=== PATIENT | female | born 1950 | race Caucasian/White ===

== ENCOUNTER 2022-10-31 10:32 | Inpatient (IN) | payer MEDICARE, OTHER ==
[~2022-10-31] VITALS: Ht 152.4 cm; Wt 64.4 kg
--- NOTE | 2022-10-31 11:00 | NUR ---
RN NOTE- 72 Y/O FEMALE BIB AMBULANCE CREW FROM [facility] FOR 5150 GD / DTS. BEGIN ADMISSION PROCESS
--- NOTE | 2022-10-31 11:01 | NUR ---
MECHANICAL DESIGN ENGINEER NOTE- 72 Y/O PORTUGUESE SPEAKING FEMALE WAS BIB FAMILY TO [facility] FOR DETERIORATING SX, PARANOIA, AWOL ATTEMPTS FROM FAMILY HOME AND ESCALATING AGITATION. PT REFUSED RX ETC. POLICE WERE CALLED BY FAMILY. SHE WAS PLACED ON 5150 DTS / GD. 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 PT MEDS - RISPERDAL, LEXAPRO, PAXIL. SHE HAS NKA. COVID VACCS - MODERNA X 3. NO PNA, NO FLU. ON ASSESSMENT- NO SKIN ISSUES, AOX PERSON ONLY. PARANOID, GUARDED. PT ATTEMPTED TO GO FOR DOORS OF UNIT AND AWOL. REORIENTATION COMPLETED. DR AMANDA TO SEE PT. FAMILY NOTIFIED. CM SPOKE W SON. VS - BP- 136/72, HR- 67, RR- 18. T- 98.0. O2 SATS 98% RA. RECEIVE ORDERS. COMPLY. PROVIDE SAFE ENVIRONMENT. MONITOR / ASSIST
[2022-10-31] MEDS ORDERED: ASPI-1169 PO (11:54)
[2022-10-31] MEDS ORDERED: ESCI10TA PO (11:54)
[2022-10-31] MEDS ORDERED: FLUT16SP16 NS (11:54)
[2022-10-31] MEDS ORDERED: CHOL100043 PO (11:54)
[2022-10-31] MEDS ORDERED: TELM40TA2 PO (11:54)
[2022-10-31] MEDS ORDERED: ALPR0.255 PO ×2 (11:54)
[2022-10-31] MEDS: risperiDONE-M 0.5 MG TAB.RAPDIS PO SCH ×3 (12:00→17:00)
[2022-10-31] MEDS: DIVALPROEX SODIUM 250 MG TABLET.DR PO SCH ×3 (13:00→17:00)
[2022-10-31] MEDS ORDERED: MAGNESIUM HYDROXIDE 30 ML UDC PO PRN (15:00)
[2022-10-31] MEDS ORDERED: ACETAMINOPHEN 325 MG TABLET PO PRN (15:00)
[2022-10-31] MEDS ORDERED: BLOOD SUGAR DIAGNOSTIC 1 EACH STRIP IN ONE (15:00)
[2022-10-31] MEDS ORDERED: MAG HYDROX/AL HYDROX/SIMETH 30 ML UDC PO PRN (15:00)
--- NOTE | 2022-10-31 15:13 | NUR ---
Treatment Plan: Pt refused to sign treatment plan and was paranoid.
--- NOTE | 2022-10-31 15:13 | NUR ---
ROLANDO Clinical Note: Pt placed on a 5150 hold for danger to herself and GD. Pt was agitated at home and was paranoid. Patient currently resides at home located at [facility] [address] [place], [place]. ROLANDO will contact pt's son Mau ([phone]) to discuss treatment/discharge plan. ROLANDO will coordinate appropriate discharge with pt, family, and MD.
--- NOTE | 2022-10-31 15:13 | NUR ---
ROLANDO Initial Discharge Note: Patient currently resides at home located at [address] [place] [address] [address] [place], [place]. ROLANDO will contact pt's son Mau ([phone]) to discuss treatment/discharge plan. ROLANDO will coordinate appropriate discharge with pt, family, and MD.
--- NOTE | 2022-10-31 15:30 | NUR ---
ROLANDO Family Contact: SW contacted pt's son Mau ([phone]) and discussed treatment/discharge plan. Son stated that pt has a DPOA and is assuming is the sister. He said that he will email this loan underwriter documents. He shared that pt was residing at a senior housing three weeks ago but left the senior housing and was living with daughter. However, at the meantime son is unsure when pt will be residing. He stated that they will ask pt which child she would want to live with.
[2022-10-31 16:00] VITALS: BP 119/63
[2022-10-31 20:29] VITALS: BP_SYST 123; BP_SYST 135; BP_DIAS 61; BP_DIAS 74
[2022-10-31] MEDS: LOSARTAN POTASSIUM 50 MG TABLET PO SCH (21:18)
[2022-11-01] MEDS: TEMAZEPAM 7.5 MG CAPSULE PO PRN (02:30)
[2022-11-01] MEDS: LORAZEPAM 0.5 MG TABLET PO PRN ×2 (03:30→10:11)
[2022-11-01 08:00] VITALS: BP 118/72
[2022-11-01] MEDS: CHOLECALCIFEROL 1,000 UNIT TABLET (VIT D3) PO SCH (09:00)
[2022-11-01] MEDS: DIVALPROEX SODIUM 250 MG TABLET.DR PO SCH ×3 (10:11→17:52)
[2022-11-01] MEDS: risperiDONE-M 0.5 MG TAB.RAPDIS PO SCH ×2 (10:12→17:52)
[2022-11-01] MEDS: ASPIRIN 81 MG TAB.CHEW PO SCH (10:13)
[2022-11-01] MEDS: FLUTICASONE PROPIONATE 16 GM BOTTLE NS SCH (10:15)
--- NOTE | 2022-11-01 14:48 | NUR ---
RN-CO: PT REFUSED LABS, ENC 3X WITH CAT OPERATOR BUT STILL REFUSED.
[2022-11-01 16:00] VITALS: BP 128/75
[2022-11-01 16:40] LABS: ALBUMIN 3.9 g/dL (3.4-5.0); BILIRUBIN,TOTAL 0.2 mg/dL (0.2-1.0); CALCIUM, SERUM 9.3 mg/dL (8.5-10.1); CREATININE 0.8 mg/dL (0.6-1.3); POTASSIUM 4.5 mmol/L (3.5-5.1); TOTAL PROTEIN, SERUM 7.2 g/dL (6.4-8.2)
[2022-11-01 16:43] LABS: CHOLESTEROL 198 mg/dL (<200); HDL CHOLESTEROL 50 mg/dL (40-60); LDL 109 mg/dL (0-99); TRIGLYCERIDES 283 mg/dL (30-150)
--- NOTE | 2022-11-01 19:49 | NUR ---
Patient is stable and compliant with meds. She is confused but easy to redirect. She has been calm,no behavior issues observed.
[2022-11-01 20:27] VITALS: BP 145/51
[2022-11-01] MEDS: LOSARTAN POTASSIUM 50 MG TABLET PO SCH (21:29)
[2022-11-02 08:00] VITALS: BP 132/87
[2022-11-02] MEDS: DIVALPROEX SODIUM 250 MG TABLET.DR PO SCH ×3 (09:02→16:43)
[2022-11-02] MEDS: CHOLECALCIFEROL 1,000 UNIT TABLET (VIT D3) PO SCH (09:02)
[2022-11-02] MEDS: risperiDONE-M 0.5 MG TAB.RAPDIS PO SCH ×3 (09:02→21:10)
[2022-11-02] MEDS: ASPIRIN 81 MG TAB.CHEW PO SCH (09:02)
[2022-11-02] MEDS: FLUTICASONE PROPIONATE 16 GM BOTTLE NS SCH (10:58)
[2022-11-02 16:00] VITALS: BP 125/77
--- NOTE | 2022-11-02 18:04 | NUR ---
RN-NOTES PATIENT VISIBLE IN THE UNIT AWAKE GUARDED,A/O X1 GUARDED,NO ACUTE DISTRESS NOTED.ATTENDED GROUPS BUT NO PARTICIPATION .REFUSED 1300 P.O MEDICATIONS DESPITE ENCOURAGEMENT BY GREEK SPEAKING STAFF. PATIENT GETS ARGUMENTATIVE AND ANGRY.PATIENT IS AMBULATORY STEADY GAIT. ALL NEEDS ATTENDED AND ANTICIPATED. WILL CONT. MONITORING FOR SAFETY AND BEHAVIOR.WILL ENDORSE TO INCOMING NURSE FOR THE CONTINUITY OF CARE.
[2022-11-02 20:00] VITALS: BP 135/81
[2022-11-02] MEDS: LOSARTAN POTASSIUM 50 MG TABLET PO SCH (21:11)
[2022-11-02] MEDS ORDERED: risperiDONE 1 MG TABLET PO SCH (22:00)
[2022-11-03 08:00] VITALS: BP 136/93
[2022-11-03] MEDS: DIVALPROEX SODIUM 250 MG TABLET.DR PO SCH ×4 (08:42→17:16)
[2022-11-03] MEDS: risperiDONE-M 0.5 MG TAB.RAPDIS PO SCH ×3 (08:42→17:15)
[2022-11-03] MEDS: ASPIRIN 81 MG TAB.CHEW PO SCH ×2 (08:42→09:00)
[2022-11-03] MEDS: CHOLECALCIFEROL 1,000 UNIT TABLET (VIT D3) PO SCH ×2 (08:42→09:00)
[2022-11-03] MEDS: FLUTICASONE PROPIONATE 16 GM BOTTLE NS SCH (09:00)
--- NOTE | 2022-11-03 09:35 | NUR ---
RN-NOTES PATIENT REFUSED ALL P.O MEDICATIONS DESPITE ENCOURAGEMENT. OFFERED X3
[2022-11-03 16:00] VITALS: BP 148/81
--- NOTE | 2022-11-03 18:27 | NUR ---
RN-NOTES PATIENT VISIBLE IN THE UNIT AWAKE GUARDED,A/O X1 GUARDED,NO ACUTE DISTRESS NOTED.ATTENDED GROUPS BUT NO PARTICIPATION .REFUSED 0900AM P.O MEDICATIONS DESPITE ENCOURAGEMENT BY MONGOLIAN SPEAKING STAFF. PATIENT GETS ARGUMENTATIVE AND ANGRY.PATIENT IS AMBULATORY STEADY GAIT. ALL NEEDS ATTENDED AND ANTICIPATED. WILL CONT. MONITORING FOR SAFETY AND BEHAVIOR.WILL ENDORSE TO INCOMING NURSE FOR THE CONTINUITY OF CARE.
[2022-11-03 20:00] VITALS: BP 141/73
--- NOTE | 2022-11-03 20:45 | NUR ---
AC NOTES: SPOKE TO PATIENTS DAUGHTER NOE, SHE REQUESTED THAT HER MOTHER BE GIVEN MEDICATION FOR CONSTIPATION SINCE HER MOTHER DID NOT HAVE A BOWEL MOVEMENT X1 DAY.
[2022-11-03] MEDS: LOSARTAN POTASSIUM 50 MG TABLET PO SCH (22:00)
[2022-11-03] MEDS: risperiDONE 1 MG TABLET PO SCH (22:00)
--- NOTE | 2022-11-03 23:30 | NUR ---
IRRIGATION EQUIPMENT INSTALLER NOTES: PATIENT REFUSED EVENING MEDICATION INCLUDING PRN MILK OF MAGNESIA FOR CONSTIPATION. OFFERED X3. EXPLAINED THE BENEFITS AND RISKS. PATIENT STILL REFUSED.
--- NOTE | 2022-11-04 07:01 | NUR ---
VALVE STEAMER NOTES: PATIENT AWAKE, WALKING IN HALLWAY. NO DISTRESS NOTED. ALL NEEDS ANTICIPATED AND ATTENDED. MONITORED FOR SAFETY AND BEHAVIOR.
[2022-11-04 08:00] VITALS: BP 150/98
[2022-11-04] MEDS: DIVALPROEX SODIUM 250 MG TABLET.DR PO SCH ×4 (08:12→16:58)
[2022-11-04] MEDS: risperiDONE-M 0.5 MG TAB.RAPDIS PO SCH ×2 (08:12→16:58)
[2022-11-04] MEDS: ASPIRIN 81 MG TAB.CHEW PO SCH (08:12)
[2022-11-04] MEDS: CHOLECALCIFEROL 1,000 UNIT TABLET (VIT D3) PO SCH (08:12)
[2022-11-04] MEDS: FLUTICASONE PROPIONATE 16 GM BOTTLE NS SCH ×2 (08:13→08:20)
[2022-11-04 16:00] VITALS: BP 142/66
--- NOTE | 2022-11-04 18:55 | NUR ---
RN NOTE Patient in room, resting. Patient is alert and ambulatory, able to make needs known. Stable on room air. No SOB or s/s of distress noted. Patient kept going back and forth to his room and dining area. Cooperative and med compliant most of the time. Only refused risperidone scheduled for 1300. Kept going to the door to try and get out. Will endorse to production supervisor off shift nurse for OPAL.
[2022-11-04 20:00] VITALS: BP 117/77
[2022-11-04] MEDS: LOSARTAN POTASSIUM 50 MG TABLET PO SCH (22:00)
[2022-11-04] MEDS: risperiDONE 1 MG TABLET PO SCH (22:00)
--- NOTE | 2022-11-04 22:40 | NUR ---
RN NOTE PT REFUSED MEDS FOR 2199: [facility].
--- NOTE | 2022-11-05 06:36 | NUR ---
RN NOTE PT SLEEPING IN ROOM AT THIS TIME. AWOL RISK, LURKS BY THE DOOR TO TRY AND GET OUT. ALERT, AMBULATORY, MALTESE-SPEAKING. ABLE TO MAKE NEEDS KNOWN. STABLE ON RA. NO SOB OR S/S OF DISTRESS NOTED. PT PACING AROUND ROOM, HALLWAY, DINING AREA. SLEPT AROUND 2330. REFUSED MEDICATIONS FOR THE NIGHT. WILL ENDORSE OPAL TO DAY SHIFT NURSE.
--- NOTE | 2022-11-05 07:40 | NUR ---
RN OPENING NOTE Patient sleeping in room, responsive to verbal stimuli, able to make needs known. Stable on room air. No SOB or s/s of distress noted. All safety measures established. Will continue to monitor.
[2022-11-05 08:00] VITALS: BP 128/88
[2022-11-05] MEDS: DIVALPROEX SODIUM 250 MG TABLET.DR PO SCH ×3 (08:39→17:01)
[2022-11-05] MEDS: CHOLECALCIFEROL 1,000 UNIT TABLET (VIT D3) PO SCH (08:39)
[2022-11-05] MEDS: risperiDONE-M 0.5 MG TAB.RAPDIS PO SCH ×2 (08:40→16:26)
[2022-11-05] MEDS: ASPIRIN 81 MG TAB.CHEW PO SCH (08:40)
[2022-11-05] MEDS: FLUTICASONE PROPIONATE 16 GM BOTTLE NS SCH (10:00)
[2022-11-05 16:00] VITALS: BP 135/84
--- NOTE | 2022-11-05 18:44 | NUR ---
RN NOTES Patient stayed in gerichair in dining room for most of the shift. No s/s of distress noted. Stable on room air. Patient is cooperative and med compliant all throughout the shift. Will endorse to shiftman nurse for OPAL.
--- NOTE | 2022-11-05 20:00 | NUR ---
GAME BREEDING FARM MANAGER NOTES: PATIENT AWAKE, BELARUSIAN SPEAKING, MED COMPLIANT, OCCATIONALLY PACING IN HALLWAY, NO DISTRESS NO DISCOMFORT NOTED. MONITORED FOR SAFETY AND BEHAVIOR.
[2022-11-05 20:24] VITALS: BP 153/90
--- NOTE | 2022-11-05 20:30 | NUR ---
PATIENT REFUSED WEEKLY BODY ASSESSMENT. WILL CONTINUE TO MONITOR.
[2022-11-05] MEDS: risperiDONE 1 MG TABLET PO SCH (21:47)
[2022-11-05] MEDS: LOSARTAN POTASSIUM 50 MG TABLET PO SCH (21:49)
[2022-11-06] MEDS: TEMAZEPAM 7.5 MG CAPSULE PO PRN (01:57)
[2022-11-06 08:00] VITALS: BP 131/84
[2022-11-06] MEDS: LORAZEPAM 0.5 MG TABLET PO PRN (08:40)
[2022-11-06] MEDS: risperiDONE-M 0.5 MG TAB.RAPDIS PO SCH ×4 (08:40→17:00)
--- NOTE | 2022-11-06 08:40 | NUR ---
NURSE NOTE: PT AGITATED AT THIS TIME. TRYING TO MOVE SELF IN GERICHAIR AND HITTING WALL. ATTEMPTED TO ADMINISTER ATIVAN BUT PT REFUSED. ENCOURAGED MULT TIMES, BUT PT REFUSED EACH TIME. WASTED MED WITH RN NABILA OVIEDO. MOVED PT TO DIFFERENT AREA WHERE SHE COULD NOT HURT HER SELF.
[2022-11-06] MEDS: ASPIRIN 81 MG TAB.CHEW PO SCH ×2 (08:41→09:00)
[2022-11-06] MEDS: DIVALPROEX SODIUM 250 MG TABLET.DR PO SCH ×6 (08:41→17:00)
[2022-11-06] MEDS: CHOLECALCIFEROL 1,000 UNIT TABLET (VIT D3) PO SCH ×2 (08:41→09:00)
[2022-11-06] MEDS: FLUTICASONE PROPIONATE 16 GM BOTTLE NS SCH ×2 (09:00→09:13)
--- NOTE | 2022-11-06 10:24 | NUR ---
Court Hearing: Patient's court hearing for 7650 was today and it was upheld for danger to herself and GD.
--- NOTE | 2022-11-06 10:24 | NUR ---
Court Notification: ROLANDO contacted pt's son Mau ([phone]) and left a voicemail of [phone] hearing.
[2022-11-06 16:00] VITALS: BP 144/78
--- NOTE | 2022-11-06 18:26 | NUR ---
NURSE NOTE: PT REFUSED MEDS DURING WHOLE SHIFT. ATTEMPTED MULTIPLE TIMES. WILL ENFORCE TO PATIENT REGISTRATION REP.
[2022-11-06] MEDS: risperiDONE 1 MG TABLET PO SCH (22:00)
[2022-11-06] MEDS: LOSARTAN POTASSIUM 50 MG TABLET PO SCH (22:00)
--- NOTE | 2022-11-06 23:45 | NUR ---
NURSE NOTE: PT REFUSED PM MEDS. ENCOURAGED A COUPLE OF TIMES, BUT PT REFUSED. PT IN BED AT THIS TIME. WILL CONT TO MONITOR.
--- NOTE | 2022-11-07 02:00 | NUR ---
CHANGED OF PRIMARY NURSE Patient in bed, intermittent sleep, confused. Bed alarm on and audible. No agitated behavior at this time. Will cont to monitor for safety and behavior.
--- NOTE | 2022-11-07 06:19 | NUR ---
END OF SHIFT NOTES Patient in bed, sleeping arouses easily. Hours of sleep 6. Restless at times. Fall precaution maintained. Plan for continue inpatient [facility] hospitalization, Behavior management per Psychiatry. Will endorse to oncoming RN.
[2022-11-07 08:00] VITALS: BP 131/86
[2022-11-07] MEDS: ASPIRIN 81 MG TAB.CHEW PO SCH (08:58)
[2022-11-07] MEDS: CHOLECALCIFEROL 1,000 UNIT TABLET (VIT D3) PO SCH (08:58)
[2022-11-07] MEDS: DIVALPROEX SODIUM 250 MG TABLET.DR PO SCH ×3 (08:58→16:51)
[2022-11-07] MEDS: FLUTICASONE PROPIONATE 16 GM BOTTLE NS SCH (08:58)
[2022-11-07] MEDS: risperiDONE-M 0.5 MG TAB.RAPDIS PO SCH ×2 (08:58→16:51)
--- NOTE | 2022-11-07 08:58 | NUR ---
RN- NOTES PATIENT REFUSED ALL 0900 MEDICATION. OFFERED X3 TIMES AND EDUCATED ON MEDICATION COMPLIANCE. PATIENT IS WITHDRAWN AND EASILY IRRITABLE. PATIENT WALKED AWAY, LAID DOWN IN BED, AND COVERED HERSELF IN THE BLANKET. WILL CONTINUE TO MONITOR FOR SAFETY AND BEHAVIOR AT THIS TIME.
[2022-11-07 16:17] VITALS: BP 160/88
--- NOTE | 2022-11-07 18:50 | NUR ---
RN-NOTES PATIENT VISIBLE IN THE UNIT AWAKE GUARDED,A/O X1 GUARDED,NO ACUTE DISTRESS NOTED.ATTENDED GROUPS BUT NO PARTICIPATION .REFUSED ALL P.O MEDICATIONS THIS SHIFT DESPITE ENCOURAGEMENT BY ROMANSH SPEAKING STAFF. PATIENT IS SELECTIVELY MUTE.PATIENT IS AMBULATORY STEADY GAIT,WANDERING TO OTHER ROOMS. NEEDS FREQUENT REDIRECTIONS AND ORIENTATION. ALL NEEDS ATTENDED AND ANTICIPATED. WILL CONT. MONITORING FOR SAFETY AND BEHAVIOR.WILL ENDORSE TO INCOMING NURSE FOR THE CONTINUITY OF CARE.
--- NOTE | 2022-11-07 19:49 | NUR ---
RN NOTES RECEIVED PATIENT SLEEPING IN BED. PT A/O X1 GUARDED, NO ACUTE DISTRESS NOTED. PATIENT IS AMBULATORY WITH STEADY GAIT, AND WANDERS TO OTHER PATIENT'S ROOMS. NEEDS FREQUENT REDIRECTIONS AND ORIENTATION. WILL CONTINUE TO MONITOR FOR SAFETY AND BEHAVIOR.
[2022-11-07] MEDS: risperiDONE 1 MG TABLET PO SCH (22:04)
[2022-11-07] MEDS: LOSARTAN POTASSIUM 50 MG TABLET PO SCH (22:06)
--- NOTE | 2022-11-08 06:45 | NUR ---
RN NOTES LEFT PATIENT SLEEPING IN BED. PT A/O X1 GUARDED, NO ACUTE DISTRESS NOTED. PATIENT IS AMBULATORY WITH STEADY GAIT, AND WANDERS TO OTHER PATIENT'S ROOMS. NEEDS FREQUENT REDIRECTIONS AND ORIENTATION. ALL SCHEDULED MEDS GIVEN. ALL NEEDS ATTENDED. WILL ENDORSE TO AM SHIFT NURSE FOR OPAL. .
[2022-11-08 08:00] VITALS: BP 115/74
[2022-11-08] MEDS: ASPIRIN 81 MG TAB.CHEW PO SCH ×2 (09:00→09:32)
[2022-11-08] MEDS: CHOLECALCIFEROL 1,000 UNIT TABLET (VIT D3) PO SCH ×2 (09:00→09:32)
[2022-11-08] MEDS: FLUTICASONE PROPIONATE 16 GM BOTTLE NS SCH (09:00)
[2022-11-08] MEDS: risperiDONE-M 0.5 MG TAB.RAPDIS PO SCH ×3 (09:00→17:00)
[2022-11-08] MEDS: DIVALPROEX SODIUM 250 MG TABLET.DR PO SCH ×4 (09:00→17:00)
--- NOTE | 2022-11-08 13:57 | NUR ---
RN-CO: CALLED COURT 95 TO FIND OUT THE TIME OF RIZITA HEARING TOMM, OF THIS TIME IT IS CLOSE.
--- NOTE | 2022-11-08 14:07 | NUR ---
RN-CO: SPOKE WITH CECILIA AT [address] THE RIESE HEARING FOR FREEMAN WILL BE TOMORROW AT 1500. DR AMANDA MADE AWARE.
[2022-11-08 16:00] VITALS: BP 120/79
--- NOTE | 2022-11-08 19:30 | NUR ---
GPS RN OPENING NOTE PT RESTING IN BED. A/O X1-2, BRITISH SPEAKING. PT IS CONFUSED, GUARDED, ANXIOUS, PARANOID, ISOLATIVE. PT NOT RESPONDING WHEN SPOKEN TO. MEDICALLY STABLE. PT IN STABLE CONDITION AT THIS TIME AND WILL CONT TO MONITOR FOR SAFETY AND BEHAVIOR.
[2022-11-08 20:18] VITALS: BP 145/79
[2022-11-08] MEDS: risperiDONE 1 MG TABLET PO SCH (21:54)
[2022-11-08] MEDS: LOSARTAN POTASSIUM 50 MG TABLET PO SCH (21:55)
--- NOTE | 2022-11-09 06:54 | NUR ---
GPS RN CLOSING NOTE PT RESTING IN BED. A/O X1-2, UZBEK SPEAKING. PT IS CONFUSED, GUARDED, ANXIOUS, PARANOID, ISOLATIVE. PT NOT RESPONDING WHEN SPOKEN TO. MEDICALLY STABLE. AWOL RISK. PT NOTED WANDERING INTO OTHER ROOMS DURING THE NIGHT. SLEPT 6 HOURS THIS SHIFT. PT IN STABLE CONDITION AT THIS TIME. SAFETY PRECAUTIONS IN PLACE AND WILL ENDORSE TO ONCOMING NURSE FOR OPAL.
[2022-11-09 08:00] VITALS: BP 133/88
[2022-11-09] MEDS: ASPIRIN 81 MG TAB.CHEW PO SCH (08:50)
[2022-11-09] MEDS: DIVALPROEX SODIUM 250 MG TABLET.DR PO SCH ×3 (08:50→16:28)
[2022-11-09] MEDS: CHOLECALCIFEROL 1,000 UNIT TABLET (VIT D3) PO SCH (08:51)
[2022-11-09] MEDS: risperiDONE-M 0.5 MG TAB.RAPDIS PO SCH ×3 (08:51→21:00)
[2022-11-09] MEDS: FLUTICASONE PROPIONATE 16 GM BOTTLE NS SCH (09:00)
--- NOTE | 2022-11-09 10:49 | NUR ---
SNF Referral: ROLANDO sent clinicals to Roberto schaeffer from [facility] ([phone]) for placement. ROLANDO sent H & P, progress notes, and medication list.
--- NOTE | 2022-11-09 10:50 | NUR ---
ROLANDO Family Contact: ROLANDO contacted pt's son Mau ([phone]) and discussed discharge planning. He is agreeable of pt going to a nursing facility.
[2022-11-09] MEDS ORDERED: risperiDONE-M 0.5 MG TAB.RAPDIS PO ONE (13:00)
--- NOTE | 2022-11-09 13:25 | NUR ---
RN NOTE HELD RISPERIDONE 2MG , GAVE RISPERIDONE 1MG ONCE, PER MD ORDER. PT RECEIVED 1 MG IN THE MORNING. THE NEW ORDER IS 2 MG Q12HR.
--- NOTE | 2022-11-09 13:25 | NUR ---
SNF Contact: SW received a call from Roberto schaeffer from [facility] ([phone]) who stated that pt is accepted.
[2022-11-09 16:00] VITALS: BP 111/72
--- NOTE | 2022-11-09 18:38 | NUR ---
GPS RN CLOSING NOTE PATIENT WALKING IN HALLWAY, BREATHING EVEN AND NON LABORED WITH NO S/S OF DISTRESS. PATIENT IS A/O X 1. PATIENT IS GUARDED, ISOLATIVE, DEPRESSED, AND RESISTANT TO MEDICATION. PATIENT TOOK PO MEDICATIONS WITH ENCOURAGEMENT. PATIENT IS NON VERBAL BUT RESPONDS WITH HEAD NODS AND HAND GESTURES BUT DENIES SI/HI AT THIS TIME. SAFETY PRECAUTIONS IN PLACE. WILL ENDORSE TO ONCOMING NURSE FOR OPAL.
[2022-11-09 20:00] VITALS: BP 136/58
[2022-11-09] MEDS: LOSARTAN POTASSIUM 50 MG TABLET PO SCH (21:03)
[2022-11-09] MEDS: OLANZAPINE 10 MG VIAL IM PRN (21:03)
--- NOTE | 2022-11-09 21:03 | NUR ---
RN NOTE PT REFUSING TO TAKE RISPERDAL 2 MG. PER RIESE ORDER, ADMINISTERED IM ZYPREXA. PT TOLERATED WELL.
--- NOTE | 2022-11-10 06:39 | NUR ---
GPS RN CLOSING NOTE PATIENT SLEEPING IN BED AT THIS TIME. A/O X 1. PATIENT IS GUARDED, ISOLATIVE, DEPRESSED, AND RESISTANT TO MEDICATION. PATIENT TOOK MEDICAL PO MEDICATIONS BUT REFUSED RISPERDAL. PER RIESE ORDER, PT GIVEN IM SHOT OF ZYPREXA 5MG PRN. PATIENT IS NON VERBAL BUT RESPONDS WITH HEAD NODS AND HAND GESTURES BUT DENIES SI/HI AT THIS TIME. ALL CARE PROVIDED AND MEDS TOLERATED WELL. SLEPT THROUGH THE NIGHT. SAFETY PRECAUTIONS MAINTAINED. WILL ENDORSE TO ONCOMING NURSE FOR OPAL.
[2022-11-10 08:00] VITALS: BP 106/60
[2022-11-10] MEDS: risperiDONE-M 0.5 MG TAB.RAPDIS PO SCH ×2 (08:48→21:07)
[2022-11-10] MEDS: OLANZAPINE 10 MG VIAL IM PRN (08:49)
[2022-11-10] MEDS: CHOLECALCIFEROL 1,000 UNIT TABLET (VIT D3) PO SCH (09:00)
[2022-11-10] MEDS: ASPIRIN 81 MG TAB.CHEW PO SCH (09:00)
[2022-11-10] MEDS: DIVALPROEX SODIUM 250 MG TABLET.DR PO SCH ×3 (09:00→16:47)
[2022-11-10] MEDS: FLUTICASONE PROPIONATE 16 GM BOTTLE NS SCH (09:00)
--- NOTE | 2022-11-10 14:04 | NUR ---
GPS/RN PT REFUSED TO TAKE MEDS. REMAINS NON VERBAL. OFFERED X3
[2022-11-10 16:00] VITALS: BP 102/57
[2022-11-10 20:00] VITALS: BP 135/64
[2022-11-10 20:21] VITALS: BP 135/94
[2022-11-10] MEDS: LOSARTAN POTASSIUM 50 MG TABLET PO SCH (21:07)
--- NOTE | 2022-11-10 21:48 | NUR ---
RECEIVED PATIENT IN BED, CALM, NON VERBAL, NOT IN APPARENT DISTRESS. TOOK ALL PM MEDS INCLUDING RISPERDAL. AMBULATORY, STEADY GAIT, KEPT SAFE, WILL CONTINUE TO MONITOR FOR SAFETY, FALL PRECAUTION.
--- NOTE | 2022-11-11 06:04 | NUR ---
ALERT AND AWAKE, NON VERBAL, FLAT AFFECT, ISOLATIVE, BRUNEIAN SPEAKING ONLY, ROOM AIR, NO COMPLAIN OF PAIN, REISED, TOOK RISPERDAL AND COZAAR. AWOL RISK, NOTED PATIENT WEARING STREET CLOTHES, HOLDING SLEEPERS AND LOOKING FOR A WAY OUT. NO BEHAVIORAL DISTURBANCE, REMAINED IN BED, ASLEEP. KEPT SAFE, WILL CONTINUE TO MONITOR.
[2022-11-11 08:00] VITALS: BP 128/75
[2022-11-11] MEDS: FLUTICASONE PROPIONATE 16 GM BOTTLE NS SCH (08:24)
[2022-11-11] MEDS: DIVALPROEX SODIUM 250 MG TABLET.DR PO SCH ×3 (09:23→16:24)
[2022-11-11] MEDS: CHOLECALCIFEROL 1,000 UNIT TABLET (VIT D3) PO SCH (09:23)
[2022-11-11] MEDS: ASPIRIN 81 MG TAB.CHEW PO SCH (09:23)
[2022-11-11] MEDS: risperiDONE-M 0.5 MG TAB.RAPDIS PO SCH ×2 (09:23→22:09)
[2022-11-11 16:00] VITALS: BP 126/72
[2022-11-11 20:00] VITALS: BP_SYST 114; BP_SYST 138; BP_DIAS 66; BP_DIAS 69
[2022-11-11] MEDS: LOSARTAN POTASSIUM 50 MG TABLET PO SCH (22:10)
--- NOTE | 2022-11-12 03:48 | NUR ---
closing notes: this 12 hours remained 8in bed covers over her head uncooperative when it comes to medication taking. She will hold the medication cup in her hand and look and look and look ! at the medication and then hand the cup back to the nurse. On the 3rd attempt ... offered her cold h20 she took the medication ordered last night one swallow. she has chosen to be mute flat affect
[2022-11-12 08:00] VITALS: BP 110/64
[2022-11-12] MEDS: FLUTICASONE PROPIONATE 16 GM BOTTLE NS SCH (09:00)
[2022-11-12] MEDS: CHOLECALCIFEROL 1,000 UNIT TABLET (VIT D3) PO SCH (09:38)
[2022-11-12] MEDS: DIVALPROEX SODIUM 250 MG TABLET.DR PO SCH ×3 (09:38→16:02)
[2022-11-12] MEDS: risperiDONE-M 0.5 MG TAB.RAPDIS PO SCH ×2 (09:38→21:31)
[2022-11-12] MEDS: ASPIRIN 81 MG TAB.CHEW PO SCH (09:38)
[2022-11-12 16:00] VITALS: BP 108/68
--- NOTE | 2022-11-12 16:00 | NUR ---
NURSE NOTE: PT STATED THAT SHE IS UNABLE TO HAVE A BM IN DAYS, REQUESTED SOMETHING TO HELP HER GO. MILK OF MG ADMIN ORDERED. PT SURI WELL.
--- NOTE | 2022-11-12 17:00 | NUR ---
NURSE NOTE: MILK OF MAG EFFECTIVE AT THIS TIME. PT ABLE TO HAVE BM. WILL CONT TO MONITOR.
[2022-11-12 20:21] VITALS: BP 108/62
[2022-11-12] MEDS: LOSARTAN POTASSIUM 50 MG TABLET PO SCH (21:31)
--- NOTE | 2022-11-13 06:35 | NUR ---
RN CLOSING NOTE PATIENT SLEEPING IN BED AT THIS TIME, PT ALERT/ORIENTED X 3, PT HAITIAN SPEAKING. PATIENT GUARDED AND NOT INTERACTIVE, COVERING SELF AND HEAD WITH BLANKET. HOWEVER WHEN DAUGHTER WAS VISITING PATIENT WAS MORE INTERACTIVE AND TALKATIVE. PER DAUGHTER, PATIENT IS AFRAID OF BEING HERE WITH PEOPLE SHE DOESN'T KNOW AND ALSO ABOUT TAKING NEW MEDICATIONS SHE'S USED TO HER MEDICATION ROUTINE AT HOME. PATIENT SLEPT WELL ALL NIGHT. PATIENT WAS COOPERATIVE AND MED COMPLIANT. PATIENT AMBULATORY WITH STEADY GAIT. NO SIGNIFICANT CHANGES THIS SHIFT, NO BEHAVIORAL ISSUES. SAFETY MEASURES MAINTAINED. WILL ENDORSE TO DAYSHIFT RN FOR CONTINUITY OF CARE
[2022-11-13 08:00] VITALS: BP 131/79
[2022-11-13] MEDS: FLUTICASONE PROPIONATE 16 GM BOTTLE NS SCH (09:00)
[2022-11-13] MEDS: DIVALPROEX SODIUM 250 MG TABLET.DR PO SCH ×3 (09:15→17:34)
[2022-11-13] MEDS: CHOLECALCIFEROL 1,000 UNIT TABLET (VIT D3) PO SCH (09:15)
[2022-11-13] MEDS: ASPIRIN 81 MG TAB.CHEW PO SCH (09:16)
[2022-11-13] MEDS: risperiDONE-M 0.5 MG TAB.RAPDIS PO SCH ×2 (09:16→21:15)
[2022-11-13 16:00] VITALS: BP 120/65
--- NOTE | 2022-11-13 18:48 | NUR ---
NURSE NOTE: PT C/O PAIN TO BELLY BUTTON AREA. SOME REDNESS NOTED TO SITE, NO DRAINAGE. ATTEMPTED TO TAKE A PICTURE, BUT PT REFUSED. WOUND CONSULT PLACED. WILL ENDORSE TO PM SHIFT.
[2022-11-13 20:17] VITALS: BP 112/68
[2022-11-13] MEDS: LOSARTAN POTASSIUM 50 MG TABLET PO SCH (21:45)
[2022-11-14 07:05] LABS: ALBUMIN 3.1 g/dL (3.4-5.0); BILIRUBIN,TOTAL 0.4 mg/dL (0.2-1.0); CALCIUM, SERUM 8.7 mg/dL (8.5-10.1); CREATININE 0.7 mg/dL (0.6-1.3); POTASSIUM 3.9 mmol/L (3.5-5.1)
[2022-11-14 07:17] LABS: BASOPHILS % (AUTO) 0.2 % (0.0-2.0); EOSINOPHILS % (AUTO) 2.6 % (0.0-6.0); HEMATOCRIT 39 % (33-45); HEMOGLOBIN 12.4 g/dL (11.5-14.8); LYMPHOCYTES # (AUTO) 0.9 K/uL (0.8-4.8); LYMPHOCYTES % (AUTO) 29.4 % (20.0-44.0); MEAN CORPUSCULAR HGB CONC 32 g/dl (31.0-36.0); MEAN CORPUSCULAR VOLUME 90 fL (82-100); MONOCYTES # (AUTO) 0.4 K/uL (0.1-1.30); MONOCYTES % (AUTO) 12.3 % (2.0-12.0); NEUTROPHILS # (AUTO) 1.6 K/uL (1.8-8.9); NEUTROPHILS % (AUTO) 55.5 % (43.0-81.0); PLATELET COUNT (AUTO) 197 K/uL (150-450); RED BLOOD CELL COUNT(AUTO) 4.29 MIL/uL (4.0-5.2); WHITE BLOOD COUNT (AUTO) 2.9 K/uL (4.3-11.0)
--- NOTE | 2022-11-14 07:28 | NUR ---
GPS RN OPENING NOTE RECEIVED LYING AWAKE IN BED. A/O X2-3, [place] SPEAKING, WITHDRAWN, HIDING UNDER THE BLANKETS, ISOLATIVE, ON ROOM AIR BREATHING WITHOUT DIFFICULTY, NOT IN ANY ACUTE DISTRESS AT THIS TIME. DENIES PAIN NOR DISCOMFORT, SAFETY PRECAUTIONS IN PLACE. WILL CONTINUE TO MONITOR FOR SAFETY AND ANY BEHAVIORAL CHANGES.
[2022-11-14 08:00] VITALS: BP 108/63
[2022-11-14] MEDS: CHOLECALCIFEROL 1,000 UNIT TABLET (VIT D3) PO SCH (08:04)
[2022-11-14] MEDS: DIVALPROEX SODIUM 250 MG TABLET.DR PO SCH ×3 (08:04→17:20)
[2022-11-14] MEDS: risperiDONE-M 0.5 MG TAB.RAPDIS PO SCH ×2 (08:04→21:20)
[2022-11-14] MEDS: ASPIRIN 81 MG TAB.CHEW PO SCH (08:04)
[2022-11-14] MEDS: BENZTROPINE MESYLATE (1 MG) 1 MG TABLET PO SCH ×2 (08:10→17:20)
--- NOTE | 2022-11-14 09:25 | NUR ---
WOUND CARE CONSULT: SOME REDNESS NOTED TO UMBILICUS. RECOMMENDATIONS MADE FOR SKIN PROTECTION AND DISCUSSED WITH NURSING STAFF. WILL SEE PRN. KHAN IN AGREEMENT WITH PLAN OF CARE.
[2022-11-14] MEDS: FLUTICASONE PROPIONATE 16 GM BOTTLE NS SCH (10:50)
[2022-11-14 11:59] LABS: BAND % (MANUAL) 2 % (0.0-5.0); EOSINOPHILS % (MANUAL) 1 % (0-4); LYMPHOCYTES % (MANUAL) 42 % (16-48); MONOCYTES % (MANUAL) 12 % (0-11.0); NEUTROPHILS % (MANUAL) 43 (42-76)
[2022-11-14 16:00] VITALS: BP 114/59
[2022-11-14] MEDS: CLOTRIMAZOLE 1% 15 GM TUBE TP SCH (17:20)
--- NOTE | 2022-11-14 19:21 | NUR ---
GPS RN CLOSING NOTE PATIENT LYING IN HER BED, A/OX2, MOROCCAN SPEAKING, BREATHING EVEN AND NON LABORED WITH NO S/S OF DISTRESS. PT IS ANXIOUS, WITHDRAWN, MED COMPLIANT. ADMINISTERED ALL DUE MEDS. WOUND CARE GIVEN. NO DISRUPTIVE BEHAVIORAL CHANGES NOTED. PT DENIES SI/HI AT THIS TIME. SAFETY MEASURES MAINTAINED. ENDORSED TO RAIL LOADER NURSE.
[2022-11-14 20:22] VITALS: BP 118/65
[2022-11-14] MEDS: LOSARTAN POTASSIUM 50 MG TABLET PO SCH (21:20)
[2022-11-15 08:00] VITALS: BP 109/66
[2022-11-15] MEDS: risperiDONE-M 0.5 MG TAB.RAPDIS PO SCH ×2 (08:59→21:44)
[2022-11-15] MEDS: CHOLECALCIFEROL 1,000 UNIT TABLET (VIT D3) PO SCH (09:04)
[2022-11-15] MEDS: DIVALPROEX SODIUM 250 MG TABLET.DR PO SCH ×3 (09:04→17:31)
[2022-11-15] MEDS: BENZTROPINE MESYLATE (1 MG) 1 MG TABLET PO SCH ×2 (09:04→17:31)
[2022-11-15] MEDS: ASPIRIN 81 MG TAB.CHEW PO SCH (09:04)
[2022-11-15] MEDS: FLUTICASONE PROPIONATE 16 GM BOTTLE NS SCH (09:07)
[2022-11-15] MEDS: CLOTRIMAZOLE 1% 15 GM TUBE TP SCH ×2 (09:07→17:31)
[2022-11-15 16:00] VITALS: BP 101/63
[2022-11-15 20:29] VITALS: BP 106/64
[2022-11-15] MEDS: LOSARTAN POTASSIUM 50 MG TABLET PO SCH (21:44)
[2022-11-16 08:00] VITALS: BP 138/68
[2022-11-16] MEDS: risperiDONE-M 0.5 MG TAB.RAPDIS PO SCH ×2 (08:16→21:01)
[2022-11-16] MEDS: ASPIRIN 81 MG TAB.CHEW PO SCH (08:16)
[2022-11-16] MEDS: DIVALPROEX SODIUM 250 MG TABLET.DR PO SCH ×3 (08:16→16:24)
[2022-11-16] MEDS: BENZTROPINE MESYLATE (1 MG) 1 MG TABLET PO SCH ×2 (08:17→16:24)
[2022-11-16] MEDS: CHOLECALCIFEROL 1,000 UNIT TABLET (VIT D3) PO SCH (08:17)
[2022-11-16] MEDS: FLUTICASONE PROPIONATE 16 GM BOTTLE NS SCH (09:30)
[2022-11-16] MEDS: CLOTRIMAZOLE 1% 15 GM TUBE TP SCH ×2 (11:03→16:31)
[2022-11-16 16:00] VITALS: BP 122/74
--- NOTE | 2022-11-16 17:56 | NUR ---
RN-NOTES PATIENT IS VISIBLE IN THE UNIT AWAKE,A/O X1 ENCOURAGED TO PARTICIPATES WITH THE GROUPS. PATIENT PREFERS TO STAY IN THE ROOM AND REST.NO ACUTE DISTRESS NOTED.COMPLIANT WITH MEDICATIONS. PATIENT DENIES SI/HI DURING FACE TO FACE ASSESSMENT .ALL NEEDS ATTENDED AND ANTICIPATED. AMBULATORY STEADY GAIT. WILL CONT. MONITORING FOR SAFETY AND BEHAVIOR. WILL ENDORSE TO INCOMING NURSE FOR THE CONTINUITY OF CARE.
--- NOTE | 2022-11-16 19:54 | NUR ---
RN NOTES: RECEIVED PATIENT RESTING IN BED COMFORTABLY. A/OX2. NO S/SX OF ACUTE DISTRESS NOTED. PATIENT IS CALM AND COOPERATIVE TO CARE,EASILY AGITATED, PARANOID GUARDED, ANXIOUS, SAFETY PRECAUTIONS MAINTAINED. WILL CONTINUE TO MONITOR Q15MIN ROUNDS FOR SAFETY AND BEHAVIOR.
[2022-11-16 20:00] VITALS: BP 122/71
[2022-11-16] MEDS: LOSARTAN POTASSIUM 50 MG TABLET PO SCH (21:13)
[2022-11-17 08:00] VITALS: BP 128/66
--- NOTE | 2022-11-17 08:09 | NUR ---
SW Discharge Note: Patient will be discharged to nursing home facility [facility] [address] [place] [address]; ([phone]). Please arrange transportation at 1PM. Mechanical Shop Laborer spoke with [place] [facility] [place][phone]) who stated patient will be accepted at facility today. Patients is aware and agreeable. Patient is alert and oriented x1 and is not able to plan for self-care at this time but is willing to accept care provided for her at the facility. Patient denies suicidal or homicidal ideation. Patients darlyn León ([phone]) aware and agreeable of dc. Patient will continue to follow-up with (psychiatrist) Dr. Kaur [address] [facility] [address], [place] [address]; ([phone]) and [employer] Developer Dr. Jason [address] [facility] [address], [place] [address]; ([phone]). Patient presents with euthymic mood and congruent affect.
[2022-11-17] MEDS: DIVALPROEX SODIUM 250 MG TABLET.DR PO SCH ×2 (08:29→12:36)
[2022-11-17] MEDS: risperiDONE-M 0.5 MG TAB.RAPDIS PO SCH (08:29)
[2022-11-17] MEDS: BENZTROPINE MESYLATE (1 MG) 1 MG TABLET PO SCH (08:30)
[2022-11-17] MEDS: CHOLECALCIFEROL 1,000 UNIT TABLET (VIT D3) PO SCH (08:30)
[2022-11-17] MEDS: ASPIRIN 81 MG TAB.CHEW PO SCH (08:30)
[2022-11-17] MEDS: CLOTRIMAZOLE 1% 15 GM TUBE TP SCH (08:30)
[2022-11-17] MEDS: FLUTICASONE PROPIONATE 16 GM BOTTLE NS SCH (08:30)
--- NOTE | 2022-11-17 08:59 | NUR ---
Dr. Kaur gave an order to d/c hold and d/c to [facility] and to follow up with psych and medical doctors. Psychiatrist ordered to continue same meds including prn.
--- NOTE | 2022-11-17 13:22 | NUR ---
RN-NOTES PATIENT HAD A DISCHARGE ORDER FROM DR. AMANDA ( PSYCHIATRIST) , CHARLI FOSTER ( PLASTERER STUCCO) MEDICALLY CLEARED PATIENT FOR DISCHARGE. REPORT WAS GIVEN TO SHARON ( ENGINEER OF SYSTEM DEVELOPMENT). PATIENT DID NOT VERBALIZE SI/HI,DENIES VISUAL /AUDITORY HALLUCINATIONS AT THE TIME OF DISCHARGE.PATIENT LEFT THE UNIT IN STABLE CONDITION, A/O X1,VITAL SIGNS FF: BP 101/62, PULSE 100,R18, O2 SAT 100 % RA. PATIENT IS AMBULATORY WITH STEADY GAIT.CLINICAL ASST BY AMBULANCE VIA GURNEY WITH TWO STAFF ASSIST . ALL BELONGINGS WAS GIVEN BACK TO THE PATIENT.
== END 2022-11-17 13:20 | DRG 885 ==
LOC: GPS 10:48
PROVIDERS: ADMIT Psychiatry & Neurology Psychosomatic Medicine; ATTEND Nurse Practitioner Acute Care
DX: F25.9 Schizoaffective disorder, unspecified (principal); E44.1 Mild protein-calorie malnutrition; F29 Unspecified psychosis not due to a substance or known physiological condition; R41.9 Unspecified symptoms and signs involving cognitive functions and awareness; R41.844 Frontal lobe and executive function deficit; Z73.6 Limitation of activities due to disability; R53.1 Weakness; R27.8 Other lack of coordination; E78.5 Hyperlipidemia, unspecified; F41.9 Anxiety disorder, unspecified; F32.A Depression, unspecified; I10 Essential (primary) hypertension; E88.09 Other disorders of plasma-protein metabolism, not elsewhere classified; Z91.14 Patient's other noncompliance with medication regimen; Z91.81 History of falling; G40.909 Epilepsy, unspecified, not intractable, without status epilepticus
CPT/HCPCS: 36415; 80053-TC; 80061-TC; 80164-TC; 85025-TC; J3490